=== PATIENT | female | born 1990 | race Caucasian/White ===

== ENCOUNTER 2017-05-10 05:56 | Emergency (ER) | payer MEDICAID ==
[~2017-05-10 05:56] MED LIST: PREN1PAK9
--- NOTE | 2017-05-10 06:49 | PD ---
HPI Chief Complaint Fever Date Seen: May 10, 2017 Time Seen: 06:30 Travel History International Travel<30 Days: No Contact w/Intl Traveler<30Days: No Known Affected Area: No History of Present Illness HPI 26-year-old 3 para 1011 at 38 weeks 6 days gestation who comes tonight complaining of fever when she woke up for this morning. She associates mild nausea without vomiting. She denies any diarrhea. She has not checked her temperature. She denies leakage of fluid, vaginal discharge or bleeding and reports good movement. Weeks Gestation: 38 History Past Medical History Medical History: Denies Significant Hx Obstetric History Obstetric History 1 elective , one prior term vaginal delivery [facility] She was a late transfer from [place]. Past Surgical History Narrative Surgical Urethral stent Family History Family History: Negative Social History Alcohol Use: No Tobacco Use: No Substance Abuse: No Allergies-Medications (Allergen,Severity, Reaction): Coded Allergies: No Known Allergies (Unverified , 05/04/17) Home Meds Reported Medications Mv & Min W/Fe Prot Snow ( + Complete Multi 18-0.8 & 290 mg) 1 Hay Hay 04/26/17 Review of Systems Except as stated in HPI: all other systems reviewed are Neg Physical Exam Narrative GENERAL: Well-nourished, well-developed patient. SKIN: Warm and dry. HEAD: Normocephalic and atraumatic. EYES: No scleral icterus. No injection or drainage. ENT: No nasal drainage noted. Mucous membranes pink. Airway patent. NECK: Supple, trachea midline. No JVD. CARDIOVASCULAR: Regular rate and rhythm without murmurs, gallops, or rubs. RESPIRATORY: Breath sounds equal bilaterally. No accessory muscle use. ABDOMEN/GI: Abdomen soft, non-tender, bowel sounds present, no rebound, no guarding Gravid to [-] weeks size Fundal Height: [-] FHT's: Category: [-] Baseline: [-] Reactive: Yes-] Variability: [-] Decels: [-] EXTREMITIES: No cyanosis or edema. BACK: Nontender without obvious deformity. No CVA tenderness. NEUROLOGICAL: Awake and alert. Motor and sensory grossly within normal limits. Five out of 5 muscle strength in all muscle groups. Normal speech. Data Data Vital Signs Reviewed: Yes MDM Medical Record Reviewed: Yes Narrative Course / MDM Assessment: 38-6/7 week gestation without evidence of fever or acute illness. Plan: Discharge home, follow up for routine visits. Diagnosis Diagnosis: Primary Impression: 38 weeks gestation of Disposition: 01 DISCHARGE HOME Condition: Good Justin Carrillo MD May 10, 2017 06:49
== END 2017-05-10 07:13 | disposition home or self-care (01) ==
LOC: HOBED 05:56
DX: O26.893 Other specified pregnancy related conditions, third trimester (principal); R11.0 Nausea; Z3A.38 38 weeks gestation of pregnancy
CPT/HCPCS: 59025

== ENCOUNTER 2017-05-20 22:42 | Emergency (ER) | payer MEDICAID ==
--- NOTE | 2017-05-20 23:14 | PD ---
HPI Chief Complaint ctx Travel History International Travel<30 Days: No Contact w/Intl Traveler<30Days: No Known Affected Area: No History of Present Illness HPI 26-year-old 2 para 1001, intrauterine at 40.0 care uncomplicated per patient report Patient reports complaining of onset of contractions every 10 minutes for 2 hours. She denies any aggravating or alleviating factors. She believes that she is in labor however the contractions are not very painful. She reports good movement. She denies any vaginal bleeding or leaking of fluid. She has no other OB complaints today. There were no attempted treatments. Weeks Gestation: 40 Para: 1 : 2 History Past Medical History Medical History: Denies Significant Hx Obstetric History Obstetric History FT x1 Past Surgical History Narrative Surgical Bladder surgery in 5th grade Family History Narrative Family History Coronary artery disease, [place], cancer, CVA, diabetes Social History Alcohol Use: No Tobacco Use: No Substance Abuse: No Allergies-Medications (Allergen,Severity, Reaction): Coded Allergies: No Known Allergies (Unverified , 05/20/17) Home Meds Reported Medications Mv & Min W/Fe Prot Snow ( + Complete Multi 18-0.8 & 290 mg) 1 Hay Hay 04/26/17 Review of Systems Except as stated in HPI: all other systems reviewed are Neg Physical Exam Narrative GENERAL: Well-nourished, well-developed patient. SKIN: Warm and dry. HEAD: Normocephalic and atraumatic. EYES: No scleral icterus. No injection or drainage. ENT: No nasal drainage noted. Mucous membranes pink. Airway patent. NECK: Supple, trachea midline. No JVD. CARDIOVASCULAR: Regular rate and rhythm without murmurs, gallops, or rubs. RESPIRATORY: Breath sounds equal bilaterally. No accessory muscle use. BREASTS: Bilateral exam showed no masses , no retractions, no nipple discharge. ABDOMEN/GI: Abdomen soft, non-tender, bowel sounds present, no rebound, no guarding Gravid GENITOURINARY: External Genitalia: intact and normal in appearance. Normal BUS. No cervical or vaginal masses appreciated. Normal rugae. Physiologic discharge. SVE 2/50/high/posterior, irregular contractions noted on toco FHT's: heart tones in the 130s baseline with category 1 tracing. FHR reactive and appropriate for gestational age, good accelerations noted and no decelerations were noted. Moderate long-term variability was appreciated EXTREMITIES: No cyanosis or edema. BACK: Nontender without obvious deformity. No CVA tenderness. NEUROLOGICAL: Awake and alert. Motor and sensory grossly within normal limits. Five out of 5 muscle strength in all muscle groups. Normal speech. Psychiatric: Grossly normal memory and affect Musculoskeletal: Grossly normal ROM, gait, muscle strength MDM Plan Assessment/plan: 1. IUP at 40.0 2. Contractions at term: No evidence of active labor with irregular contractions and unfavorable cervix. Strict labor precautions SVE was unchanged over observation period repeat examination unchanged. 3. well-being: Reassuring testing with reactive NST. The heart tones were reassuring and appropriate for gestational age. Strict Kick counts daily 4. Follow up with primary OB in 2-3 days or sooner if needed. Return to labor and delivery for signs of labor. Disposition: 01 DISCHARGE HOME Condition: Sirisha Rivero MD May 20, 2017 23:14
== END 2017-05-21 06:44 | disposition home or self-care (01) ==
LOC: HOBED 22:42
DX: O62.9 Abnormality of forces of labor, unspecified (principal); Z3A.40 40 weeks gestation of pregnancy
CPT/HCPCS: 59025

== ENCOUNTER 2017-05-25 13:53 | Emergency (ER) | payer MEDICAID ==
[~2017-05-25] VITALS: Ht 167.6 cm; Wt 114.8 kg
--- NOTE | 2017-05-25 15:12 | PD ---
HPI Chief Complaint sent from [facility] for decreased movement and possible induction. Date Seen: May 25, 2017 Travel History International Travel<30 Days: No Contact w/Intl Traveler<30Days: No Known Affected Area: No History of Present Illness HPI 26 yo sent over from [facility] due to non-reassuring NST. Pt endorses movement. Pt denies LOF, vaginal bleeding. Pt stated contractions are not consistent. GBS negative. Weeks Gestation: 41 Para: 1 : 3 : 1 History Past Medical History Medical History: Denies Significant Hx Obstetric History Obstetric History . Pt stated she was induced in prior at 41 wks. Past Surgical History Narrative Surgical urethral stent- 2000 Family History Narrative Family History DM- grand aunt prostate cancer- grandfather Social History Narrative Social History Pt lives with mother and fiance. Alcohol Use: No Tobacco Use: No Substance Abuse: No Allergies-Medications (Allergen,Severity, Reaction): Coded Allergies: No Known Allergies (Unverified , 05/25/17) Home Meds Reported Medications Mv & Min W/Fe Prot Snow ( + Complete Multi 18-0.8 & 290 mg) 1 Hay Hay 04/26/17 Review of Systems Except as stated in HPI: all other systems reviewed are Neg Physical Exam Narrative GENERAL: Well-nourished, well-developed patient. SKIN: Warm and dry. HEAD: Normocephalic and atraumatic. EYES: No scleral icterus. No injection or drainage. ENT: No nasal drainage noted. Mucous membranes pink. Airway patent. NECK: Supple, trachea midline. No JVD. CARDIOVASCULAR: Regular rate and rhythm without murmurs, gallops, or rubs. RESPIRATORY: Breath sounds equal bilaterally. No accessory muscle use. ABDOMEN/GI: Abdomen soft, non-tender, bowel sounds present, no rebound, no guarding Gravid to 41/6 weeks size GENITOURINARY: External Genitalia: intact and normal in appearance Cervix: posterior Dilatation: 2cm Effacement: 70 Station: -2 Presentation: vertex Membranes: intact Uterine Contractions: intermittent, pt does not feel contractions FHT's: Category: 1 Baseline: 120 Reactive: positive Variability: moderate Decels: none EXTREMITIES: No cyanosis or edema. BACK: Nontender without obvious deformity. No CVA tenderness. NEUROLOGICAL: Awake and alert. Motor and sensory grossly within normal limits. Five out of 5 muscle strength in all muscle groups. Normal speech. Data Data Vital Signs Reviewed: Yes Orders Orders Vital Signs (Adult) .ON ADMISSION (05/25/17 15:) ^ Labor Status (05/25/17 15:) ^ Non Stress Test (05/25/17 15:) ^ Hydration (05/25/17 15:) Group B Strep: Negative MDM Medical Record Reviewed: Yes Plan 26 yo at 40/6 sent from [facility] due to decrease activity and possible induction. 1. IUP at 40 wks - continue routine OB care -encouraged oral hydration - NST reactive with good excalations -FHT cat. 1, reassuring - no medical indication for induction of labor based on NST, FHT and clinical exam. - Pt scheduled for induction at 05/28 at 8am. 2. GBS negative -pt will not require ppx antibiotics -discharge; pt will be discharged home with plan to return for induction on Monday 05/28. - Pt provided further instructions -elmo, Dr. Coe and Dr. Lanier Diagnosis Diagnosis: Primary Impression: 40 weeks gestation of Additional Impression: Decreased movement Disposition: DISCHARGE HOME Condition: Stable Patient Instructions: General Instructions, Having Your Baby: The Labor Process (GEN), Medical Induction of Labor (GEN) Additional Instructions: scheduled for induction on Monday 05/28. Porfirio Howard MD R1 May 25, 2017 15:12
== END 2017-05-25 15:57 | disposition home or self-care (01) ==
LOC: HOBED 13:53
DX: O36.8130 Decreased fetal movements, third trimester, not applicable or unspecified (principal); Z3A.40 40 weeks gestation of pregnancy
CPT/HCPCS: 59025

== ENCOUNTER 2017-05-26 02:44 | Inpatient (IN) | payer MEDICAID ==
[2017-05-26] VITALS (101 sets, daily range): BP systolic 86–156; BP diastolic 41–128; PULSE 66–107; RESP 16–19; TEMP 97.9–99.1
[~2017-05-26] VITALS: Ht 167.6 cm; Wt 115.0 kg
--- NOTE | 2017-05-26 03:23 | HHI.HP ---
HPI Chief Complaint Contractions Date Seen: May 26, 2017 Time Seen: 03:18 Travel History International Travel<30 Days: No Contact w/Intl Traveler<30Days: No Known Affected Area: No History of Present Illness HPI This 26-year-old white female at 41 weeks goes to [facility]. Presents complaining of regular contractions that are painful no bleeding or leakage of fluid. The patient was here about 10 hours ago and was sent home she was 2 cm at that time, she is now 4 cm /70%/ -3 heart rate tracing is reactive Weeks Gestation: 41 Para: 1 : 3 Miscarriage: 1 History Obstetric History Obstetric History One vaginal delivery 1 early loss Social History Alcohol Use: No Tobacco Use: No Substance Abuse: No Allergies-Medications (Allergen,Severity, Reaction): Coded Allergies: No Known Allergies (Unverified , 05/25/17) Home Meds Reported Medications Mv & Min W/Fe Prot Snow ( + Complete Multi 18-0.8 & 290 mg) 1 Hay Hay 04/26/17 Review of Systems General / Constitutional: No: Fever, Weight Gain, Chills, Other Eyes: No: Diploplia, Blurred Vision, Visual changes, Pain, Photophobia HENT: No: Headaches, Vertigo, Lightheadedness Cardiovascular: No: Irregular Rhythm, Chest Pain or Discomfort, Palpitations, Tachycardia, Syncope, Varicosities, Edema, Cyanosis Respiratory: No: Cough, Short of Breath, Other Gastrointestinal: Abdominal Pain, No: Nausea, Vomiting, Diarrhea Genitourinary: No: Decreased Urinary Output, Oliguria Musculoskeletal: No: Limited ROM, Weakness, Cramping, Edema, Pain Skin: No Rash, No Itching, No Dryness, No Lumps, No Change in Pigmentation, No Change in Nails, No Alopecia, No Lesions Neurologic: No: Weakness, Dizziness, Syncope, Focal Abnormalities, Coordination Problem, Headache, Slurred Speech, Seizures Psychiatric: No: Depression, Suicidal Ideations, Homicidal Ideation Endocrine: No: Heat Intolerance, Cold Intolerance, Polydipsia, Polyuria, Other Physical Exam Narrative GENERAL: Well-nourished, well-developed patient. SKIN: Warm and dry. HEAD: Normocephalic and atraumatic. EYES: No scleral icterus. No injection or drainage. ENT: No nasal drainage noted. Mucous membranes pink. Airway patent. NECK: Supple, trachea midline. No JVD. CARDIOVASCULAR: Regular rate and rhythm without murmurs, gallops, or rubs. RESPIRATORY: Breath sounds equal bilaterally. No accessory muscle use. BREASTS: Bilateral exam showed no masses , no retractions, no nipple discharge. ABDOMEN/GI: Abdomen soft, non-tender, bowel sounds present, no rebound, no guarding Gravid to [-40] weeks size Fundal Height: [-40] GENITOURINARY: External Genitalia: intact and normal in appearance BUS glands: [-] Cervix: [-Posterior] Dilatation: 4 Effacement: [70-] Station: [-3] Presentation: [vtx-] Membranes: [intact ] Uterine Contractions: [-reg] FHT's: Category: [1-] Baseline: [-133] Reactive: [yes-] Variability: [mod-] Decels: [none-] EXTREMITIES: No cyanosis or edema. BACK: Nontender without obvious deformity. No CVA tenderness. NEUROLOGICAL: Awake and alert. Motor and sensory grossly within normal limits. Five out of 5 muscle strength in all muscle groups. Normal speech. Caprini VTE Risk Assessment Caprini VTE Risk Assessment: No/Low Risk (score <= 1) Caprini Risk Assessment Model Point Value = 1 Point Value = 2 Point Value = 3 Point Value = 5 Age 41-60 Minor surgery BMI > 25 kg/m2 Swollen legs Varicose veins or History of unexplained or recurrent spontaneous Oral contraceptives or hormone replacement Sepsis (< 1 month) Serious lung disease, including pneumonia (< 1 month) Abnormal pulmonary function Acute myocardial infarction Congestive heart failure (< 1 month) History of inflammatory bowel disease Medical patient at bed rest Age 61-74 Arthroscopic surgery Major open surgery (> 45 min) Laparoscopic surgery (> 45 min) Malignancy Confined to bed (> 72 hours) Immobilizing plaster cast Central venous access Age >= 75 History of VTE Family history of VTE Factor V Leiden Prothrombin [id number] Lupus anticoagulant Anticardiolipin antibodies Elevated serum homocysteine Heparin-induced thrombocytopenia Other congenital or acquired thrombophilia Stroke (< 1 month) Elective arthroplasty Hip, pelvis, or leg fracture Acute spinal cord injury (< 1 month) Prophylaxis Regimen Total Risk Factor Score Risk Level Prophylaxis Regimen 0-1 Low Early ambulation 2 Moderate Order ONE of the following: *Sequential Compression Device (SCD) *Heparin 5000 units SQ BID 3-4 Higher Order ONE of the following medications: *Heparin 5000 units SQ TID *Enoxaparin/Lovenox 40 mg SQ daily (WT < 150 kg, CrCl > 30 mL/min) *Enoxaparin/Lovenox 30 mg SQ daily (WT < 150 kg, CrCl > 10-29 mL/min) *Enoxaparin/Lovenox 30 mg SQ BID (WT < 150 kg, CrCl > 30 mL/min) AND/OR *Sequential Compression Device (SCD) 5 or more Highest Order ONE of the following medications: *Heparin 5000 units SQ TID (Preferred with Epidurals) *Enoxaparin/Lovenox 40 mg SQ daily (WT < 150 kg, CrCl > 30 mL/min) *Enoxaparin/Lovenox 30 mg SQ daily (WT < 150 kg, CrCl > 10-29 mL/min) *Enoxaparin/Lovenox 30 mg SQ BID (WT < 150 kg, CrCl > 30 mL/min) AND *Sequential Compression Device (SCD) Assessment/Plan Assessment and Plan Patient is 26-year-old white female now at 41 weeks [facility], she presents in early labor. Cervix 4 cm 70% -3 vertex, heart rate tracing is reactive contractions are noted every 3 minutes Impression-early labor in multiparous patient Plan is admission, labor management and anticipate vaginal delivery Josr Coe II, MD May 26, 2017 03:23
[2017-05-26] MEDS ORDERED: ONDANSETRON HCL 4 MG/2 ML VIAL IV PRN (03:30)
[2017-05-26] MEDS ORDERED: LIDOCAINE HCL 1% 50 ML VIAL I-DERMAL PRN (03:30)
[2017-05-26] MEDS ORDERED: SODIUM CHLORID 0.9% 500 ML INJ 500 ML IV PRN (03:30)
[2017-05-26] MEDS ORDERED: CITRIC ACID-SODIUM CITRATE LIQ 30 ML UDC PO SCH (03:30)
[2017-05-26] MEDS ORDERED: LIDOCAINE HCL 1% 50 ML VIAL INFIL PRN (03:30)
[2017-05-26] MEDS ORDERED: MINERAL OIL 10 ML VIAL TOPICAL PRN (03:30)
[2017-05-26] MEDS ORDERED: OXYTOCIN 30 UNITS-500ML PREMIX 500 ML IV ONE (03:30)
[2017-05-26] MEDS ORDERED: SODIUM CHLOR 0.9% 1000 ML INJ 1,000 ML IV PRN (03:43)
[2017-05-26 04:31] LABS: AUTOMATED NEUTROPHIL # 7.4 TH/MM3 (1.8-7.7); BASOPHIL # 0.1 TH/MM3 (0-0.2); BASOPHIL % 0.5 % (0.0-2.0); EOSINOPHIL # 0.1 TH/MM3 (0-0.4); EOSINOPHIL % 0.9 % (0.0-4.0); HEMATOCRIT 33.9 % (35.0-46.0); HEMO FLAGS DIFF FINAL; LYMPH % 21.1 % (9.0-44.0); LYMPHOCYTE # 2.3 TH/MM3 (1.0-4.8); MEAN CELL VOLUME 82.6 FL (80.0-100.0); MEAN CORPUSCULAR HEMOGLOBIN 27.2 PG (27.0-34.0); MEAN CORPUSCULAR HGB CONC 32.9 % (32.0-36.0); MONO % 8.2 % (0.0-8.0); NEUT % 69.3 % (16.0-70.0); PLATELET COUNT 245 TH/MM3 (150-450); WHITE BLOOD COUNT 10.7 TH/MM3 (4.0-11.0)
[2017-05-26] MEDS: LACTATED RINGER'S 1000 ML INJ 1,000 ML IV SCH ×2 (05:15→09:40)
[2017-05-26] MEDS: LACTATED RINGER'S 1000 ML INJ 1,000 ML IV PRN ×2 (05:15→09:39)
[2017-05-26] MEDS ORDERED: fentaNYL 2MCG-BUPIV 0.125% INJ 100 ML ONE (08:42)
[2017-05-26] MEDS ORDERED: ePHEDrine/NS 25 MG/5 ML SYR ONE (08:42)
[2017-05-26] MEDS ORDERED: BUPIVACAINE HCL PF 0.25% 10 ML VIAL ONE (08:51)
[2017-05-26] MEDS ORDERED: ePHEDrine/NS 25 MG/5 ML SYR IV PRN (10:00)
[2017-05-26] MEDS ORDERED: NO SYSTEM NARCOTICS PRN (10:00)
[2017-05-26] MEDS ORDERED: DO NOT ADMINISTER ANTICOAGULANTS PRN (10:00)
[2017-05-26] MEDS ORDERED: fentaNYL 2MCG-BUPIV 0.125% 100 ML EPIDURAL SCH (10:00)
--- NOTE | 2017-05-26 10:23 | PD.LABORPN ---
Subjective Subjective Medical team to evaluate patient for active labor. Patient currently with no complaints. Epidural placed with no complications. Medical team to AROM. Objective Vital Signs Vital Signs Date Time Temp Pulse Resp B/P (MAP) Pulse Ox O2 Delivery O2 Flow Rate FiO2 05/26/17 09:36 69 139/61 (87) 05/26/17 09:35 75 05/26/17 09:33 84 131/73 (92) 05/26/17 09:30 66 05/26/17 09:30 66 108/55 (72) 05/26/17 09:28 69 99/54 (69) 05/26/17 09:27 71 86/71 (76) 05/26/17 09:25 79 05/26/17 09:20 132/89 (103) 05/26/17 09:20 86 05/26/17 09:17 115/64 (81) 05/26/17 09:17 70 05/26/17 09:15 76 05/26/17 09:11 77 119/81 (94) 05/26/17 09:10 77 05/26/17 09:06 79 132/62 (85) 05/26/17 09:05 76 05/26/17 09:01 93 137/94 (108) 05/26/17 09:00 75 05/26/17 08:56 98.5 05/26/17 08:55 84 141/80 (100) 05/26/17 08:55 89 05/26/17 08:52 92 138/76 (96) 05/26/17 08:50 81 05/26/17 08:50 18 05/26/17 08:46 86 149/84 (105) 05/26/17 08:45 90 05/26/17 08:40 79 131/86 (101) 05/26/17 08:40 73 05/26/17 07:45 19 05/26/17 07:00 17 05/26/17 05:58 18 05/26/17 05:57 70 129/84 (99) 05/26/17 05:15 98.4 05/26/17 05:15 18 05/26/17 05:14 75 133/87 (102) 05/26/17 04:30 18 Objective Pelvic Exam: Cervix: Midposition Dilatation: 5-6 cm Effacement: 75% Station: -2 Presentation: Cephalic Membranes: AROM, meconium fluid Uterine Contractions: Every 2 minutes FHT's: Category: 1 Baseline: 135 Reactive: Positive Variability: Moderate Decels: None Weeks Gestation: 41 Gest Age Assessed Date: May 26, 2017 Gest Age Assessed Time: 10:19 Pt started active labor?: Yes Active labor start date: May 26, 2017 Active labor start time: 03:30 Medical induction of labor?: No Artificial rupture of membrane: Yes Artificial ROM date: May 26, 2017 Artifical ROM time: 10:20 Assessment/Plan Assessment and Plan Mrs. Sandy is a 26-year-old at 41 weeks gestation currently in active labor 1. IUP 41 weeks -Continue routine antepartum care -Patient currently in active labor without augmentation -Epidural placed without complication -AROM with meconium fluid, no complications - heart tracing category 1, reassuring 2. GBS negative SDW: Ritchie Haji MD R2 May 26, 2017 10:23
[2017-05-26] MEDS ORDERED: OXYTOCIN 30 UNITS-500ML PREMIX 500 ML ONE (12:51)
--- NOTE | 2017-05-26 14:14 | PD.OB.DELI ---
Weeks gestation: 41 Gest age assessed date: May 26, 2017 Gest age assessed time: 10:19 Pt started active labor?: Yes Active labor start date: May 26, 2017 Active labor start time: 03:30 Medical induction of labor?: No Artificial rupture of membrane: Yes Artificial ROM date: May 26, 2017 Artifical ROM time: 10:20 Anesthesia: Epidural Episiotomy: None Vaginal Delivery: Normal Presentation: Occiput anterior Nuchal Cord: None Delayed cord clamping (45 sec): Yes Infant: Female Delivery date: May 26, 2017 Delivery time: 13:20 One Minute : 8 Five Minute : 9 Weight: 3970 Placenta: Spontaneous delivery, Intact, 3 vessel cord Laceration: 1 deg Repair: Vicryl running Estimated blood loss: 150cc Additional Information SDW: Ritchie Mullen MD R2 May 26, 2017 14:14
[2017-05-26] MEDS ORDERED: WITCH HAZEL 50%/GLYCERIN 12.5% 40 PAD JAR TOPICAL PRN (14:15)
[2017-05-26] MEDS ORDERED: BENZOCAINE 20% TOPICAL SPRAY 60 ML CAN TOPICAL PRN (14:15)
[2017-05-26] MEDS ORDERED: ONDANSETRON ODT 4 MG TAB PO PRN (14:15)
[2017-05-26] MEDS ORDERED: OXYTOCIN 30 UNITS-500ML PREMIX 500 ML IV SCH (14:15)
[2017-05-26] MEDS ORDERED: DOCUSATE SODIUM 50 MG/SENNA 8.6 MG TAB PO PRN (14:15)
[2017-05-26] MEDS ORDERED: SODIUM CHLORIDE 0.9% FLUSH 10 ML FLUSH IV FLUSH PRN (14:15)
[2017-05-26] MEDS ORDERED: oxyCODONE/ACETAMINOPHEN 5 MG/325 MG TAB PO PRN (14:15)
[2017-05-26] MEDS ORDERED: ALUMINUM/MAGNESIUM/SIMETH 30 ML CUP PO PRN (14:15)
[2017-05-26] MEDS ORDERED: ACETAMINOPHEN 325 MG TAB PO PRN (14:15)
[2017-05-26] MEDS ORDERED: ZOLPIDEM TARTRATE 5 MG TAB PO PRN (14:15)
[2017-05-26] MEDS ORDERED: DIPHTH/TETANUS/ACEL PERTUSSIS (BOOSTER) 0.5 ML VIAL/PFS IM ONE (16:00)
[2017-05-26] MEDS ORDERED: MEASLES, MUMPS, RUBELLA VACCINE 0.5 ML VIAL SQ ONE (16:00)
[2017-05-26] MEDS ORDERED: SODIUM CHLORIDE 0.9% FLUSH 10 ML FLUSH IV FLUSH SCH (21:00)
[2017-05-27] MEDS: IBUPROFEN 600 MG TAB PO PRN ×2 (02:33→14:39)
--- NOTE | 2017-05-27 08:02 | HHI.OB ---
Subjective Post Day: 1 Remarks Pt seen and examined this morning. day # 1 AFVSS overnight. Decreased lochia. Denies dysuria. No breast tenderness. She is feeding the baby via breast. Appetite good. No nausea or vomiting. Patient has not yet had a bowel movement or had bowel gas. Ambulating well. Denies calf pain or shortness of breath. Otherwise, she is doing well this morning and has no other concerns. (Ritchie Lanier MD R2) Objective Vitals/I&O Vital Signs Date Time Temp Pulse Resp B/P (MAP) Pulse Ox O2 Delivery O2 Flow Rate FiO2 05/27/17 03:33 18 05/26/17 20:30 99.1 80 18 108/64 (79) 05/26/17 16:30 98.5 05/26/17 16:30 72 16 114/69 (84) 05/26/17 15:45 18 05/26/17 15:30 78 117/71 (86) 05/26/17 15:06 16 05/26/17 15:01 87 125/76 (92) 05/26/17 14:46 85 115/62 (79) 05/26/17 14:45 18 05/26/17 14:31 89 123/75 (91) 05/26/17 14:27 18 05/26/17 14:15 18 05/26/17 14:15 87 119/85 (96) 05/26/17 14:01 89 123/85 (98) 05/26/17 14:00 18 05/26/17 13:46 156/128 (137) 05/26/17 13:45 98.7 05/26/17 13:45 19 05/26/17 13:35 92 136/75 (95) 05/26/17 13:31 87 137/72 (93) 05/26/17 13:15 104 05/26/17 13:10 95 18 05/26/17 13:05 107 05/26/17 13:00 89 132/95 (107) 05/26/17 13:00 89 05/26/17 12:55 86 05/26/17 12:50 88 05/26/17 12:45 83 05/26/17 12:40 18 05/26/17 12:40 85 05/26/17 12:35 84 05/26/17 12:30 82 05/26/17 12:30 85 117/61 (79) 05/26/17 12:20 82 05/26/17 12:15 80 05/26/17 12:10 85 05/26/17 12:05 74 05/26/17 12:00 71 120/63 (82) 05/26/17 12:00 77 05/26/17 11:55 75 05/26/17 11:50 84 05/26/17 11:45 74 05/26/17 11:40 68 05/26/17 11:35 74 05/26/17 11:31 74 128/73 (91) 05/26/17 11:30 74 05/26/17 11:25 78 05/26/17 11:20 69 05/26/17 11:15 78 05/26/17 11:10 83 05/26/17 11:05 76 05/26/17 11:01 84 124/46 (72) 05/26/17 11:00 82 05/26/17 11:00 97.9 05/26/17 10:55 73 05/26/17 10:50 97 05/26/17 10:45 79 05/26/17 10:40 79 05/26/17 10:36 102 120/54 (76) 05/26/17 10:35 76 05/26/17 10:31 71 122/61 (81) 05/26/17 10:30 72 05/26/17 10:26 82 122/66 (84) 05/26/17 10:25 79 05/26/17 10:21 93 112/50 (70) 05/26/17 10:20 100 05/26/17 10:16 77 109/56 (73) 05/26/17 10:15 80 05/26/17 10:11 82 93/41 (58) 05/26/17 10:10 85 05/26/17 10:06 84 107/62 (77) 05/26/17 10:05 88 05/26/17 10:00 76 05/26/17 10:00 102 136/43 (74) 05/26/17 09:55 89 129/71 (90) 05/26/17 09:55 80 05/26/17 09:50 76 113/75 (88) 05/26/17 09:50 84 05/26/17 09:46 80 123/64 (83) 05/26/17 09:45 75 05/26/17 09:41 70 127/65 (85) 05/26/17 09:40 73 05/26/17 09:36 69 139/61 (87) 05/26/17 09:35 75 05/26/17 09:33 84 131/73 (92) 05/26/17 09:30 66 05/26/17 09:30 66 108/55 (72) 05/26/17 09:28 69 99/54 (69) 05/26/17 09:27 71 86/71 (76) 05/26/17 09:25 79 05/26/17 09:20 132/89 (103) 05/26/17 09:20 86 05/26/17 09:17 115/64 (81) 05/26/17 09:17 70 05/26/17 09:15 76 05/26/17 09:11 77 119/81 (94) 05/26/17 09:10 77 05/26/17 09:06 79 132/62 (85) 05/26/17 09:05 76 05/26/17 09:01 93 137/94 (108) 05/26/17 09:00 75 05/26/17 08:56 98.5 05/26/17 08:55 84 141/80 (100) 05/26/17 08:55 89 05/26/17 08:52 92 138/76 (96) 05/26/17 08:50 81 05/26/17 08:50 18 05/26/17 08:46 86 149/84 (105) 05/26/17 08:45 90 05/26/17 08:40 79 131/86 (101) 05/26/17 08:40 73 Objective Remarks GENERAL: Well-nourished, well-developed patient. CARDIOVASCULAR: Regular rate and rhythm without murmurs, gallops, or rubs. RESPIRATORY: Breath sounds equal bilaterally. No accessory muscle use. ABDOMEN/GI: Abdomen soft, non-tender. Fundus: Firm, non-tender at umbilicus. GENITOURINARY: Light to moderate bleeding. EXTREMITIES: No cyanosis or edema, non-tender, without signs of DVT. Medications and IVs Current Medications Medications (Trade) Dose Ordered Sig/Alma Delia Route Start Time Stop Time Status Last Admin Miscellaneous Information No systemic narcotics to be given except... UNSCH PRN .XX 05/26/17 10:00 05/27/17 09:59 Miscellaneous Information DO NOT ADMINISTER ANY ANTICOAGUL... UNSCH PRN .XX 05/26/17 10:00 05/27/17 09:59 Fentanyl/ Bupivacaine HCl 100 ml @ 0 mls/hr TITRATE EPIDURAL 05/26/17 10:00 (ePHEDrine/NS 25 MG/5 ML SYR) 10 mg UNSCH PRN IV 05/26/17 10:00 05/27/17 09:59 (NS Flush) 2 ml BID IV FLUSH 05/26/17 21:00 (NS Flush) 2 ml UNSCH PRN IV FLUSH 05/26/17 14:15 (Tylenol) 650 mg Q4H PRN PO 05/26/17 14:15 (Motrin) 600 mg Q6H PRN PO 05/26/17 14:15 05/27/17 02:33 (Americaine 20% Top Spr) 1 spray Q4H PRN TOPICAL 05/26/17 14:15 05/26/17 16:46 (Tucks Pads) 1 applic QID PRN TOPICAL 05/26/17 14:15 05/26/17 16:46 (Xochitl-Colace) 2 tab Q12H PRN PO 05/26/17 14:15 (Ambien) 5 mg HS PRN PO 05/26/17 14:15 (Mag-Al Plus Susp Liq) 15 ml Q8H PRN PO 05/26/17 14:15 (Zofran Odt) 4 mg Q6H PRN PO 05/26/17 14:15 (Percocet 5-325 Mg) 1 tab Q4H PRN PO 05/26/17 14:15 (Ritchie Lanier MD R2) Assessment/Plan Assessment and Plan 26 y/o female who is day # 1 s/p . -Continue routine care. -Percocet and Motrin PRN pain. -Encouraged OOB. Advised pelvic rest for 6 wks. -Re: ctrl, she would like to discuss her options at her follow-up appointment. -Anticipate discharge tomorrow with baby. dw Dr. Coleman MD Discharge Planning Tomorrow with baby (Ritchie Lanier MD R2) Attestation Patient seen and examined. Agree with resident's assessment and plan. (Sirisha Cee MD) Ritchie Lanier MD R2 May 27, 2017 08:02 Sirisha Cee MD May 27, 2017 09:00
[2017-05-27 09:02] VITALS: BP 136/81; PULSE 64; RESP 17; TEMP 98.6
[2017-05-27 20:10] VITALS: BP 129/98; PULSE 75; RESP 20; TEMP 98.3
[2017-05-28] MEDS: IBUPROFEN 600 MG TAB PO PRN (04:13)
[2017-05-28 07:24] VITALS: BP 124/84; PULSE 64; RESP 18; TEMP 98
[2017-05-28] MEDS ORDERED: SENN1TAB PO (07:29)
[2017-05-28] MEDS ORDERED: IBUP-232 PO (07:29)
--- NOTE | 2017-05-28 07:29 | HHI.DCPOC ---
Discharge Care Plan Diagnosis: (1) (spontaneous vaginal delivery) Report Symptoms to Your Doctor -Temperature above 100.5 degrees -Redness, of incision or excessive or foul smelling drainage -Unusual pain or calf pain -Increased vaginal bleeding -Painful or difficulty urinating -Feelings of extreme sadness or anxiety after 2 weeks Goals to Promote Your Health * To prevent worsening of your condition and complications * To maintain your health at the optimal level Directions to Meet Your Goals Take your medications as prescribed Follow your dietary instruction Follow activity as directed Ensure plenty of rest for recovery Drink fluids for hydration Keep your appointments as scheduled Take your immunizations and boosters as scheduled If your symptoms worsen call your PCP, if no PCP go to Urgent Care Center or Emergency Room Smoking is Dangerous to Your Health. Avoid second hand smoke Call the 24-hour crisis hotline for domestic abuse at Ritchie Lanier MD R2 May 28, 2017 07:29
--- NOTE | 2017-05-28 07:31 | HHI.OB ---
Subjective Post Day: 2 Remarks Pt seen and examined this morning. day # 2 AFVSS overnight. Minimal pain. Decreased lochia. Denies dysuria. No breast tenderness. She is feeding the baby via breast. Appetite good. No nausea or vomiting. Patient has not yet had a bowel movement. Has had flatus. Ambulating well. Denies calf pain, shortness of breath, fever or chills. Otherwise, she is doing well this morning and has no other concerns. Objective Vitals/I&O Vital Signs Date Time Temp Pulse Resp B/P (MAP) Pulse Ox O2 Delivery O2 Flow Rate FiO2 05/28/17 05:13 18 05/27/17 20:10 98.3 75 20 129/98 (108) 05/27/17 09:02 98.6 17 05/27/17 09:02 64 136/81 (99) Objective Remarks GENERAL: Well-nourished, well-developed patient. CARDIOVASCULAR: Normal s1 and s2. Regular rate and rhythm without murmurs, gallops, or rubs. RESPIRATORY: Breath sounds equal bilaterally. No accessory muscle use. ABDOMEN/GI: Abdomen soft, non-tender. Fundus: Firm, non-tender at umbilicus. GENITOURINARY: Light to moderate bleeding. EXTREMITIES: No cyanosis or edema, non-tender, without signs of DVT. DP pulses + 2 BL. Medications and IVs Current Medications Medications (Trade) Dose Ordered Sig/Alma Delia Route Start Time Stop Time Status Last Admin Fentanyl/ Bupivacaine HCl 100 ml @ 0 mls/hr TITRATE EPIDURAL 05/26/17 10:00 (NS Flush) 2 ml BID IV FLUSH 05/26/17 21:00 (NS Flush) 2 ml UNSCH PRN IV FLUSH 05/26/17 14:15 (Tylenol) 650 mg Q4H PRN PO 05/26/17 14:15 (Motrin) 600 mg Q6H PRN PO 05/26/17 14:15 05/28/17 04:13 (Americaine 20% Top Spr) 1 spray Q4H PRN TOPICAL 05/26/17 14:15 05/26/17 16:46 (Tucks Pads) 1 applic QID PRN TOPICAL 05/26/17 14:15 05/26/17 16:46 (Xochitl-Colace) 2 tab Q12H PRN PO 05/26/17 14:15 05/27/17 14:39 (Ambien) 5 mg HS PRN PO 05/26/17 14:15 (Mag-Al Plus Susp Liq) 15 ml Q8H PRN PO 05/26/17 14:15 (Zofran Odt) 4 mg Q6H PRN PO 05/26/17 14:15 (Percocet 5-325 Mg) 1 tab Q4H PRN PO 05/26/17 14:15 Assessment/Plan Problem List: (1) (spontaneous vaginal delivery) ICD Codes: O80 - Encounter for full-term uncomplicated delivery Status: Acute Assessment and Plan 26 y/o female who is day # 2 s/p . Pt doing well, stable, no complaints. -Scripts for Motrin PRN pain and senna help with BM given -Encouraged OOB. Advised pelvic rest for 6 wks. -Re: ctrl, she would like to discuss her options at her follow-up appointment. -discharge today, 05/28. hnery Coe MD Discharge Planning today Porfirio Howard MD R1 May 28, 2017 07:31
== END 2017-05-28 13:51 | disposition home or self-care (01) | DRG 775 ==
LOC: HOBED 02:44 → H2EA 03:26 → H1EA 16:10
PROVIDERS: ADMIT Obstetrics & Gynecology Maternal & Fetal Medicine; ATTEND Obstetrics & Gynecology Maternal & Fetal Medicine
PROC: 10E0XZZ Delivery of Products of Conception, External Approach (ICD-10-PCS; principal; 2017-05-26)
PROC: 0HQ9XZZ Repair Perineum Skin, External Approach (ICD-10-PCS; 2017-05-26)
PROC: 10907ZC Drainage of Amniotic Fluid, Therapeutic from Products of Conception, Via Natural or Artificial Opening (ICD-10-PCS; 2017-05-26)
PROC: 00HU33Z Insertion of Infusion Device into Spinal Canal, Percutaneous Approach (ICD-10-PCS; 2017-05-26)
PROC: 3E0R3CZ (ICD-10-PCS; 2017-05-26)
DX: O48.0 Post-term pregnancy (principal); O70.0 First degree perineal laceration during delivery; Z37.0 Single live birth; Z3A.41 41 weeks gestation of pregnancy
CPT/HCPCS: 59025; 85025; 86900; 86901; 88307; 90715; J2590; J3010; J7120